=== PATIENT | male | born 1965 | race Caucasian/White ===

== ENCOUNTER → 2018-02-10 | Day surgery (SDC) | payer OTHER ==
[~2018-02-10] VITALS: Ht 167.6 cm; Wt 77.1 kg
[~2018-02-10] MED LIST: ACETAMINOPHEN/O1 TA2 PO; CLONAZEPAM1 MG PO; DILAUDID2 MG PO; LAMICTAL 100MG100 MG PO; LIDOCAINE VISCO20 ML TOP; LISINOPRIL20 MG PO; NORVASC 5MG TAB5 MG PO; PRISTIQ 50MG50 MG PO
[2018-02-10 08:42] LABS: PT 11.8 SEC (9.4-12.5); PTT 32 SEC (25-37)
--- NOTE | 2018-02-17 15:46 | Operative Report ---
Operative/Inv Procedure Report Surgery Date: 02/10/18 Name of Procedure: cystoscopy: urethral stricture dilatation. 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 With the patient awake, With the patient awake, timeout was performed in order to confirm timeout was performed in order to confirm correct identity, procedure, antibiotics, anesthesia, and other pertinent perioperative information. anesthesia, and other pertinent perioperative information. After adequate anesthesia, and IV antibiotics, the patient was placed in lithotomy stirrups. He was then draped and prepped in the usual surgical fashion. 2% lidocaine Urojet was instilled into the urethra for 10 minutes. At this point, the rigid ureteroscope was inserted into the meatus, and slowly advanced into the urethra in order to identify 3 urethral strictures primarily at the anterior urethra, and mild obstructing prostate. Upon entering the bladder, the bladder was noted to be free of tumor, free of stone, with mild trabeculation. Both ureteral orifices were clearly visible, with clear efflux of urine bilaterally. A 0.038 Glidewire was advanced through the ureteroscope, and into the bladder. The ureteroscope was removed, leaving the Glidewire in place. Under direct visualization a 17 [place] cystoscope sheath with a 30 angle lens was inserted into the urethra which dilated gently the meatal stenosis, and the 3 anterior urethral strictures without significant difficulty. Subsequently, after removing the 17 [place] scope, the 19 [place] cystoscope sheath with a 30 angle lens was inserted into the meatus which advanced easily through the meatal stricture without difficulty, and further dilating this meatal stenosis. The 19 [place] scope was advanced into the urethra to further dilate the urethral strictures. Once an 18 [place] sheath was advanced into the bladder without significant difficulty the cystoscope was then removed easily revealing the strictures to be dilated significantly. Given the patient's complex penile surgical reconstruction, I did not wish to further dilate the urethra and cause further potential damage. The bladder was drained prior to removing the 19 [place] cystoscope. All sponge needle and instrument count were correct at the end of the case. The patient tolerated the procedure well and was taken to the recovery room in satisfactory condition. The patient is to self cath once a day for a month, and subsequently on a weekly basis thereafter. The patient is to return on a when necessary basis if he has further symptoms of urethral stricture recurrence. Discharge Disposition: PACU CC: Fernando Birmingham MD
== END ==
LOC: STS 03:16
PROVIDERS: Urology
DX: N35.8 Other urethral stricture (principal); R30.0 Dysuria; B19.20 Unspecified viral hepatitis C without hepatic coma; I10 Essential (primary) hypertension
CPT/HCPCS: 36415; 93005; 93010; J2250